=== PATIENT | female | born 1985 | race Caucasian/White ===

== ENCOUNTER 2024-12-20 23:03 | Emergency (ER) | payer BC ==
[~2024-12-20 23:03] MED LIST: Iopamidol 370 76% 100 ML VIAL ONE
[2024-12-20] MEDS ORDERED: Ondansetron PF 4 MG/2 ML Vial ONE (23:35)
[2024-12-20 23:41] LABS: Hematocrit 40.9 % (36.0-47.0); Hemoglobin 14.7 g/dL (12.0-16.0); MDiff Complete? YES; Mean Corpuscular Hemoglobin 29.4 pg (27.0-31.0); Mean Corpuscular Volume 81.4 fl (78.0-98.0); Platelet Adequacy Comment Appears Adequate; Platelet Count 375 10x3/uL (130-400); Red Blood Cell (RBC) Count 5.02 mill/uL (4.20-5.40); White Blood Cell (WBC) Count 13.8 10x3/uL (4.8-10.8)
[2024-12-20 23:51] LABS: ALT (SGPT) 48 U/L (Less than 34); AST (SGOT) 60 U/L (11-34); Albumin 4.6 g/dL (3.1-4.5); Alkaline Phosphatase 83 U/L (40-110); Anion Gap 17 mmol/L (10-20); BUN (Urea Nitrogen) 9 mg/dL (7.0-18.7); Bilirubin, Total 0.2 mg/dL (0.3-1.2); Calc. Creatinine Clearance 0 mL/min (70-130); Calcium 9.3 mg/dL (7.8-10.44); Carbon Dioxide 28 mmol/L (22-29); Chloride 101 mmol/L (98-107); Globulin 3.6 g/dL (2.4-3.5); Glucose 142 mg/dL (70-105); Potassium 3.7 mmol/L (3.5-5.1); Sodium 142 mmol/L (136-145)
[2024-12-20] MEDS ORDERED: Orphenadrine Citrate 60 MG/2 ML VIAL ONE (23:58)
[2024-12-20] MEDS ORDERED: Ketorolac Tromethamine 30 MG (1 mL) VIAL ONE (23:58)
[2024-12-21 00:29] LABS: BHCG - Serum Negative (NEGATIVE); Pregs Control Background? CLEAR/WHITE (CLR/WHITE); Pregs Control Bar Appear? YES (CONTROL BAR)
[2024-12-21] MEDS ORDERED: Ciprofloxacin Lactate D5W 400 mg (200 mL) BAG ONE (00:54)
[2024-12-21 01:19] LABS: Lipase 27 U/L (8-78); Magnesium 1.6 mg/dL (1.6-2.6)
[2024-12-21 01:23] LABS: Glucose, Urine (Dipstick) Negative (Negative); Leukocyte Negative (Negative); Protein, Urine (Dipstick) Negative (Neg-Trace); Specific Gravity, Urine 1.010 (1.005-1.030)
[2024-12-21 01:27] LABS: Bacteria/HPF Rare-Few HPF (None Seen); CAUTI Indications for Culture Pelvic or flank pain; RBC/HPF None Seen HPF (0-3); WBC/HPF None Seen HPF (0-3)
[2024-12-21 01:28] LABS: Urine Culture Reflex No No
[2024-12-21] MEDS ORDERED: metroNIDAZOLE 500 MG (100 mL) BAG ONE (01:50)
== END 2024-12-21 03:29 | disposition home or self-care (01) ==
LOC: BURERS 23:03
DX: K52.9 Noninfective gastroenteritis and colitis, unspecified (principal); E86.0 Dehydration; A05.9 Bacterial foodborne intoxication, unspecified
CPT/HCPCS: 74177; 80053; 81001; 83605; 83690; 83735; 84703; 85025; 96374; 96375; J0744; J1885; J2360; J2405; J2919; Q9967